=== PATIENT | female | born 1950 ===

== ENCOUNTER → 2018-12-15 | Outpatient (CLI) | payer MEDICARE | END | disposition home or self-care (01) | LOC: LAB EV 07:15 → LAB FUT 12-13 09:15 | DX: R10.13 Epigastric pain (principal) | CPT/HCPCS: 87338 ==

== ENCOUNTER 2021-07-27 09:44 | Day surgery (SDC) | payer MEDICARE ==
[~2021-07-27] VITALS: Ht 152.4 cm; Wt 49.9 kg
[2021-07-27] MEDS ORDERED: CREON DR 12,001 EACH (11:59)
[2021-07-27] MEDS ORDERED: Prinivil10 MG (12:00)
[2021-07-27] MEDS ORDERED: ZOCOR20 MG (12:00)
== END 2021-07-27 13:45 | disposition home or self-care (01) ==
LOC: ORSCSDS 09:44
PROVIDERS: Ophthalmology
PROC: 08RK3JZ Replacement of Left Lens with Synthetic Substitute, Percutaneous Approach (ICD-10-PCS; principal; 2021-07-27 12:00)
DX: H25.12 Age-related nuclear cataract, left eye (principal); I10 Essential (primary) hypertension; Z85.07 Personal history of malignant neoplasm of pancreas; Z79.899 Other long term (current) drug therapy
CPT/HCPCS: J2001; J2250; J3010; J3301; J7040; V2632

== ENCOUNTER 2021-08-03 11:59 | Day surgery (SDC) | payer MEDICARE ==
[~2021-08-03] VITALS: Ht 152.4 cm; Wt 49.1 kg
[~2021-08-03 11:59] MED LIST: CREON DR 12,001 EACH; Prinivil10 MG; ZOCOR20 MG
--- NOTE | 2021-08-03 13:10 | NUR ---
08/03/21 1310 Sandy Atkins AT 1304 PLEGET AT 1306
== END 2021-08-03 14:40 | disposition home or self-care (01) ==
LOC: ORSCSDS 11:59
PROVIDERS: Ophthalmology
PROC: 08RJ3JZ Replacement of Right Lens with Synthetic Substitute, Percutaneous Approach (ICD-10-PCS; principal; 2021-08-03 13:30)
DX: H25.11 Age-related nuclear cataract, right eye (principal); I10 Essential (primary) hypertension; Z79.899 Other long term (current) drug therapy
CPT/HCPCS: J2001; J2250; J3010; J3301; J7040; V2632

== ENCOUNTER 2024-02-20 11:24 | Day surgery (SDC) | payer MEDICARE ==
[~2024-02-20] VITALS: Ht 152.4 cm; Wt 48.9 kg
[~2024-02-20 11:24] MED LIST changes: +Lactated Ringer's 1,000 ML IV ONE; +propofoL 50 ML IV ONE
[2024-02-20] MEDS ORDERED: ASPI81CH (12:00)
[2024-02-20] MEDS ORDERED: MULVITA (12:01)
[2024-02-20] MEDS ORDERED: Simvastatin10 MG (12:02)
[2024-02-20] MEDS ORDERED: LISI10 (12:02)
[2024-02-20] MEDS ORDERED: Lactated Ringer's 1,000 ML IV ONE (12:49)
[2024-02-20 14:27] VITALS: BP 108/62
== END 2024-02-20 14:02 | disposition home or self-care (01) ==
LOC: ORSCSDS 11:24
DX: Z12.11 Encounter for screening for malignant neoplasm of colon (principal); K63.5 Polyp of colon; K64.8 Other hemorrhoids; Z85.07 Personal history of malignant neoplasm of pancreas; I10 Essential (primary) hypertension; E78.5 Hyperlipidemia, unspecified; Z79.82 Long term (current) use of aspirin; Z79.899 Other long term (current) drug therapy
CPT/HCPCS: 88305; J2704; J7120